=== PATIENT | female | born 1990 | race Caucasian/White ===

== ENCOUNTER 2022-07-14 13:26 | Emergency (ER) | payer BC ==
[~2022-07-14] VITALS: Ht 157.5 cm; Wt 79.4 kg
[2022-07-14 14:38] LABS: *URINE HCG, QUAL NEG (NEGATIVE)
--- NOTE | 2022-07-14 15:00 | NUR ---
Pt arrived in the ED w/ c/o neck pain, rated 5-6/10, non-radiating, characterized as aching. Seen by Dr. Simmons for MSE.
[2022-07-14] MEDS ORDERED: IBUPROFEN 600 MG TABLET ONE (15:26)
[2022-07-14] MEDS ORDERED: IBUPROFEN 600 MG TABLET PO ONE (15:30)
[2022-07-14] MEDS ORDERED: IBUP-1955 PO (15:40)
[2022-07-14] MEDS ORDERED: CYCL10TA9 PO (15:40)
--- NOTE | 2022-07-14 15:45 | NUR ---
Patient discharged to home in stable condition. Written and verbal after care instructions given. Patient verbalizes understanding of instructions. Stressed follow up or return to ER for worsening s/s.
[2022-07-14 16:18] VITALS: BP 114/75
== END 2022-07-14 15:44 | disposition home or self-care (01) ==
LOC: ER 13:26
DX: S16.1XXA Strain of muscle, fascia and tendon at neck level, initial encounter (principal); X58.XXXA Exposure to other specified factors, initial encounter; Y93.I1 Activity, roller coaster riding; Y92.838 Other recreation area as the place of occurrence of the external cause; Z88.2 Allergy status to sulfonamides; Z98.1 Arthrodesis status
CPT/HCPCS: 72125; 84703; A4663

== ENCOUNTER 2022-09-09 20:36 | Emergency (ER) | payer BC ==
[~2022-09-09] VITALS: Ht 157.5 cm; Wt 79.4 kg
[~2022-09-09 20:36] MED LIST: CYCL10TA9 PO; IBUP-1955 PO
--- NOTE | 2022-09-09 20:58 | NUR ---
Patient placed in room 3A
--- NOTE | 2022-09-09 21:03 | NUR ---
Dr. Shea evaluating patient at bedside. MSE in progress.
[2022-09-09] MEDS ORDERED: OXYCODONE/APAP 5-325 MG TABLET PO ONE (21:15)
[2022-09-09] MEDS ORDERED: OXYCODONE/APAP 5-325 MG TABLET ONE (21:16)
--- NOTE | 2022-09-09 21:19 | NUR ---
Patient taken to Xray via wheelchair accompanied by rf test technician.
--- NOTE | 2022-09-09 21:31 | NUR ---
Patient ambulated to the bathroom independently. Activity tolerated well
[2022-09-09] MEDS ORDERED: HYDR-3980 PO (21:39)
--- NOTE | 2022-09-09 21:41 | NUR ---
Patient placed in soft neck collar.
--- NOTE | 2022-09-09 21:48 | NUR ---
Patient discharged to home in stable condition. Written and verbal after care instructions given. Patient verbalizes understanding of instructions. Instructed patient not to drive. Stressed follow up or return to ER for worsening s/s.
[2022-09-09 21:50] VITALS: BP 128/85
--- NOTE | 2022-09-09 21:52 | NUR ---
Unable to perform 22:18 reassessment for Percocet 5-35mg PO due to patient d/c home at 21:48. Patient rated 2/10 pain prior to being discharged.
== END 2022-09-09 21:55 | disposition home or self-care (01) ==
LOC: ER 20:38
DX: S16.1XXA Strain of muscle, fascia and tendon at neck level, initial encounter (principal); Z88.2 Allergy status to sulfonamides; Z88.5 Allergy status to narcotic agent; Z79.1 Long term (current) use of non-steroidal anti-inflammatories (NSAID); Z79.899 Other long term (current) drug therapy; X50.1XXA Overexertion from prolonged static or awkward postures, initial encounter; Y93.89 Activity, other specified; Y92.89 Other specified places as the place of occurrence of the external cause; Y99.8 Other external cause status
CPT/HCPCS: A4663